=== PATIENT | male | born 1990 | race Hispanic/Latino ===

== ENCOUNTER 2021-04-03 09:27 | Emergency (ER) | payer BC ==
[~2021-04-03] VITALS: Ht 185.4 cm; Wt 190.5 kg
[2021-04-03] MEDS ORDERED: SODIUM CHLORIDE 0.9% 1000ML 1,000 ML IV STA (10:18)
[2021-04-03] MEDS ORDERED: AMPICILLIN SOD/SULBACTAM 3 GM VIAL ONE (10:50)
[2021-04-03] MEDS ORDERED: SODIUM CHLORIDE 0.9% 1000ML 1,000 ML ONE (10:50)
[2021-04-03] MEDS ORDERED: ACETAMINOPHEN 325 MG TAB ONE (10:50)
[2021-04-03] MEDS ORDERED: AMPICILLIN SOD/SULBACTAM 3GM 100 ML IV ONE (11:00)
[2021-04-03] MEDS ORDERED: ACETAMINOPHEN 325 MG TAB PO ONE (11:00)
[2021-04-03] MEDS ORDERED: SODIUM CHLORIDE 0.9% 50ML 50 ML ONE (11:15)
[2021-04-03] MEDS ORDERED: IOPAMIDOL 370 MG/ML 200 ML INFUS..BTL INJ ONE (11:15)
[2021-04-03] MEDS ORDERED: CLEOCIN HCL300 MG PO (14:05)
[2021-04-03] MEDS ORDERED: CEPHALEXIN500 MG PO (14:05)
[2021-04-03] MEDS ORDERED: ONDANSETRON ODT4 MG PO (14:07)
[2021-04-03] MEDS ORDERED: ATIVAN1 MG PO (14:08)
== END 2021-04-03 14:44 | disposition home or self-care (01) ==
LOC: FSED 09:33
DX: R50.9 Fever, unspecified (principal); K61.1 Rectal abscess; I10 Essential (primary) hypertension; R16.1 Splenomegaly, not elsewhere classified; K76.0 Fatty (change of) liver, not elsewhere classified; F10.20 Alcohol dependence, uncomplicated; E66.01 Morbid (severe) obesity due to excess calories; Z91.14 Patient's other noncompliance with medication regimen; Z20.822 Contact with and (suspected) exposure to COVID-19
CPT/HCPCS: 71260; 74177; 80048; 80076; 81003; 83518; 85025; 85379; 87400; 99284; J0295 ×2; J7030; Q9967; U0002

== ENCOUNTER 2021-08-09 10:09 | Emergency (ER) | payer BC ==
[~2021-08-09] VITALS: Ht 182.9 cm; Wt 188.0 kg
[~2021-08-09 10:09] MED LIST: ATIVAN1 MG PO; CEPHALEXIN500 MG PO; CLEOCIN HCL300 MG PO; ONDANSETRON ODT4 MG PO
[2021-08-09] MEDS ORDERED: SITZ BATH (11:03)
[2021-08-09] MEDS ORDERED: HEMORRHOID 1%-156 GM PR ×2 (11:03→11:19)
[2021-08-09] MEDS ORDERED: LMX 45 G1 TOP ×2 (11:03→11:19)
== END 2021-08-09 11:21 | disposition home or self-care (01) ==
LOC: FSED 10:20
DX: K62.5 Hemorrhage of anus and rectum (principal); K64.4 Residual hemorrhoidal skin tags; I10 Essential (primary) hypertension; E66.01 Morbid (severe) obesity due to excess calories
CPT/HCPCS: 99282

== ENCOUNTER 2021-09-19 16:10 | Inpatient (IN) | payer BC ==
[~2021-09-19] VITALS: Ht 182.9 cm; Wt 186.9 kg
[~2021-09-19 16:10] MED LIST changes: +HEMORRHOID 1%-156 GM PR; +LMX 45 G1 TOP; +SITZ BATH
[2021-09-19] MEDS ORDERED: ACETAMINOPHEN 325 MG TAB PO STA (16:50)
[2021-09-19] MEDS ORDERED: SODIUM CHLORIDE 0.9% 1000ML 1,000 ML IV STA (16:50)
[2021-09-19] MEDS ORDERED: Vancomycin IV 1.25 GM in SODIUM CHLORIDE 0.9% 250ML 250 ML IV ONE (17:00)
[2021-09-19] MEDS ORDERED: ACETAMINOPHEN 325 MG TAB ONE (17:08)
[2021-09-19] MEDS ORDERED: Vancomycin IV 1 GM VIAL ONE (17:09)
[2021-09-19] MEDS ORDERED: SODIUM CHLORIDE 0.9% 250ML 0 ML ONE (17:09)
[2021-09-19] MEDS ORDERED: PIPERACILLIN/TAZOBACTAM 3.375 GM VIAL ONE (17:09)
[2021-09-19] MEDS ORDERED: SODIUM CHLORIDE 0.9% 1000ML 1,000 ML ONE (17:09)
[2021-09-19] MEDS ORDERED: IOPAMIDOL 370 MG/ML 100 ML INFUS..BTL INJ ONE (19:40)
[2021-09-19 20:11] VITALS: BP 150/83
[2021-09-19] MEDS ORDERED: HYDROCODONE/APAP 5MG-325MG TAB PO PRN ×2 (20:15→23:45)
[2021-09-19 20:18] VITALS: BP 150/83
[2021-09-19 20:47] VITALS: BP 150/83
[2021-09-19] MEDS ORDERED: SODIUM CHLORIDE 0.9% 250ML 250 ML ONE (23:03)
[2021-09-19] MEDS ORDERED: SIMETHICONE 80 MG CHEW PO PRN (23:45)
[2021-09-19] MEDS ORDERED: ACETAMINOPHEN 325 MG TAB PO PRN (23:45)
[2021-09-19] MEDS ORDERED: DEXTROSE 50% SYRINGE 50 ML IV PRN (23:45)
[2021-09-19] MEDS ORDERED: POTASSIUM CHLORIDE 20 MEQ TAB CR PO PRN (23:45)
[2021-09-19] MEDS ORDERED: HYDRALAZINE HCL 20 MG/ML VIAL IV PRN (23:45)
[2021-09-19] MEDS ORDERED: ONDANSETRON HCL INJ 2MG/ML 2ML 2 MG/ML VIAL IV PRN (23:45)
[2021-09-19] MEDS ORDERED: MELATONIN 5 MG TABLET PO PRN (23:45)
[2021-09-19] MEDS ORDERED: DIPHENHYDRAMINE HCL 25 MG CAP PO PRN (23:45)
[2021-09-19] MEDS ORDERED: DOCUSATE SODIUM 100 MG CAP PO PRN (23:45)
[2021-09-19] MEDS ORDERED: BENZONATATE 100 MG CAP PO PRN (23:45)
[2021-09-19] MEDS ORDERED: LIDOCAINE 4% PATCH TP PRN (23:45)
[2021-09-19] MEDS ORDERED: ALBUTEROL/IPRATROPIUM 3 ML NEB NEB PRN (23:45)
[2021-09-20] VITALS (8 sets, daily range): BP systolic 148–183; BP diastolic 73–98
[2021-09-20 06:08] LABS: BASOPHILS # (AUTO) 0.1 (0.0-0.1); BASOPHILS % 0.7 % (0.0-1.0); EOSINOPHILS # (AUTO) 0.2 (0.0-0.4); HEMATOCRIT 42.2 % (38.2-49.6); HEMOGLOBIN 13.8 g/dL (14.0-18.0); LYMPHOCYTES # (AUTO) 1.3 (1.0-3.2); LYMPHOCYTES % 16.8 % (18.0-39.1); MEAN CORPUSCULAR HEMOGLOBIN 33.3 pg (28-32); MEAN CORPUSCULAR HGB CONC 32.7 g/dL (31-35); MEAN CORPUSCULAR VOLUME 101.9 fL (81-99); MONOCYTES # (AUTO) 0.7 (0.2-0.8); MONOCYTES % 9.3 % (4.4-11.3); NEUTROPHILS # (AUTO) 5.4 (2.1-6.9); NEUTROPHILS % 69.8 % (38.7-80.0); PLATELET COUNT 241 x10e3/uL (140-360); RED BLOOD COUNT 4.14 x10e6/uL (4.3-5.7); RED CELL DISTRIBUTION WIDTH 11.9 % (11.7-14.4)
[2021-09-20 06:51] LABS: ANION GAP 11.9 mmol/L (8-16); CHOL/HDL RATIO 3.4 (3.9-4.7); CREATININE, SERUM 0.7 mg/dL (0.72-1.25); MAGNESIUM 2.3 MG/DL (1.3-2.1); POTASSIUM 3.9 mmol/L (3.5-5.1)
[2021-09-20 07:07] LABS: THYROID STIMULATING HORMONE 3.344 uIU/mL (0.350-4.940)
[2021-09-20] MEDS ORDERED: Vancomycin IV 1.25 GM in SODIUM CHLORIDE 0.9% 250ML 250 ML IV SCH (08:30)
[2021-09-20] MEDS: PANTOPRAZOLE SOD 40 MG TABEC PO SCH (08:40)
[2021-09-20] MEDS: Vancomycin IV 1.25 GM in SODIUM CHLORIDE 0.9% 250ML 250 ML IV SCH ×2 (09:00→20:36)
[2021-09-20] MEDS ORDERED: BUPIVACAINE HCL 0.5% INJ 30 ML VIAL INJ ONE (09:03)
[2021-09-20] MEDS ORDERED: ONDANSETRON HCL INJ 2MG/ML 2ML 2 MG/ML VIAL ONE (12:09)
[2021-09-20] MEDS ORDERED: KETOROLAC TROMETHAMINE 30 MG/ML VIAL ONE (12:09)
[2021-09-20] MEDS ORDERED: PROPOFOL IV EMULSION 10 MG/ML 20 ML VIAL ONE (12:09)
[2021-09-20] MEDS ORDERED: POVIDONE IODINE 0.05% 0.05 % ML PO ONE (12:09)
[2021-09-20] MEDS ORDERED: LIDOCAINE HCL 2% LOCAL INJ 5 ML SDV VIAL INJ ONE (12:09)
[2021-09-20] MEDS ORDERED: SEVOFLURANE INHAL SOLN 250 ML PEN BTL ONE (12:09)
[2021-09-20] MEDS ORDERED: MIDAZOLAM HCL 2 MG/2 ML VIAL ONE (13:08)
[2021-09-20] MEDS ORDERED: FENTANYL CITRATE/PF 100MCG/2 ML INJ ONE (13:08)
[2021-09-20] MEDS: LOSARTAN POTASSIUM 25 MG TAB PO SCH (16:52)
[2021-09-20] MEDS: ENOXAPARIN SOD INJ 40 MG/0.4 ML SYR SC SCH (16:52)
[2021-09-21] VITALS: BP 136/90
[2021-09-21 04:47] VITALS: BP 159/106
[2021-09-21 06:13] LABS: BASOPHILS # (AUTO) 0.1 (0.0-0.1); BASOPHILS % 0.8 % (0.0-1.0); EOSINOPHILS # (AUTO) 0.3 (0.0-0.4); EOSINOPHILS % 5.2 % (0.0-6.0); HEMATOCRIT 42.3 % (38.2-49.6); HEMOGLOBIN 13.8 g/dL (14.0-18.0); LYMPHOCYTES # (AUTO) 1.2 (1.0-3.2); MEAN CORPUSCULAR HEMOGLOBIN 33.5 pg (28-32); MEAN CORPUSCULAR HGB CONC 32.6 g/dL (31-35); MEAN CORPUSCULAR VOLUME 102.7 fL (81-99); MONOCYTES # (AUTO) 0.5 (0.2-0.8); MONOCYTES % 8.1 % (4.4-11.3); NEUTROPHILS # (AUTO) 4.4 (2.1-6.9); NEUTROPHILS % 67.1 % (38.7-80.0); PLATELET COUNT 212 x10e3/uL (140-360); RED BLOOD COUNT 4.12 x10e6/uL (4.3-5.7); RED CELL DISTRIBUTION WIDTH 11.9 % (11.7-14.4)
[2021-09-21 06:30] LABS: ANION GAP 11.8 mmol/L (8-16); CALCIUM 8.1 mg/dL (8.4-10.2); CREATININE, SERUM 0.73 mg/dL (0.72-1.25); POTASSIUM 3.8 mmol/L (3.5-5.1)
[2021-09-21 08:02] VITALS: BP 115/58
[2021-09-21] MEDS: Vancomycin IV 1.25 GM in SODIUM CHLORIDE 0.9% 250ML 250 ML IV SCH ×2 (08:28→20:50)
[2021-09-21] MEDS: PANTOPRAZOLE SOD 40 MG TABEC PO SCH (08:28)
[2021-09-21] MEDS: LOSARTAN POTASSIUM 25 MG TAB PO SCH (08:29)
[2021-09-21 11:27] VITALS: BP 141/91
[2021-09-21] MEDS ORDERED: ONDANSETRON HCL 4 MG ORAL DISINTEGRATING TAB PO PRN ×2 (13:00)
[2021-09-21 15:31] VITALS: BP 145/93
[2021-09-21] MEDS: ENOXAPARIN SOD INJ 40 MG/0.4 ML SYR SC SCH (17:14)
[2021-09-21 20:00] VITALS: BP 119/63
[2021-09-21] MEDS ORDERED: METOPROLOL TARTRATE 25 MG TAB PO SCH (21:00)
[2021-09-21] MEDS ORDERED: ATORVASTATIN 40 MG TAB PO SCH (21:00)
[2021-09-22] VITALS (8 sets, daily range): BP systolic 122–139; BP diastolic 68–85
[2021-09-22 06:57] LABS: BASOPHILS # (AUTO) 0.1 (0.0-0.1); BASOPHILS % 0.9 % (0.0-1.0); EOSINOPHILS # (AUTO) 0.4 (0.0-0.4); EOSINOPHILS % 5.6 % (0.0-6.0); HEMATOCRIT 42.3 % (38.2-49.6); HEMOGLOBIN 14.4 g/dL (14.0-18.0); LYMPHOCYTES # (AUTO) 1.6 (1.0-3.2); MEAN CORPUSCULAR HEMOGLOBIN 35.3 pg (28-32); MEAN CORPUSCULAR VOLUME 103.7 fL (81-99); MONOCYTES # (AUTO) 0.5 (0.2-0.8); MONOCYTES % 6.6 % (4.4-11.3); NEUTROPHILS # (AUTO) 4.3 (2.1-6.9); NEUTROPHILS % 63.3 % (38.7-80.0); PLATELET COUNT 221 x10e3/uL (140-360); RED BLOOD COUNT 4.08 x10e6/uL (4.3-5.7)
[2021-09-22 07:31] LABS: CALCIUM 8.4 mg/dL (8.4-10.2); CREATININE, SERUM 0.74 mg/dL (0.72-1.25)
[2021-09-22] MEDS: LOSARTAN POTASSIUM 25 MG TAB PO SCH (08:46)
[2021-09-22] MEDS: PANTOPRAZOLE SOD 40 MG TABEC PO SCH (08:46)
[2021-09-22] MEDS: Vancomycin IV 1.25 GM in SODIUM CHLORIDE 0.9% 250ML 250 ML IV SCH ×2 (09:29→20:45)
[2021-09-22] MEDS: ENOXAPARIN SOD INJ 40 MG/0.4 ML SYR SC SCH (16:31)
[2021-09-23] VITALS (10 sets, daily range): BP systolic 126–139; BP diastolic 79–95
[2021-09-23] MEDS: PANTOPRAZOLE SOD 40 MG TABEC PO SCH (08:30)
[2021-09-23] MEDS: LOSARTAN POTASSIUM 25 MG TAB PO SCH (08:30)
[2021-09-23] MEDS: Vancomycin IV 1.25 GM in SODIUM CHLORIDE 0.9% 250ML 250 ML IV SCH (08:41)
[2021-09-23] MEDS: ENOXAPARIN SOD INJ 40 MG/0.4 ML SYR SC SCH (17:04)
[2021-09-24] VITALS: BP 115/85
[2021-09-24 04:00] VITALS: BP 136/98
[2021-09-24 07:43] VITALS: BP 154/82
[2021-09-24] MEDS ORDERED: SODIUM CHLORIDE 0.9% 250ML 250 ML ONE (07:43)
[2021-09-24 08:03] VITALS: BP 154/82
[2021-09-24] MEDS ORDERED: CEFTRIAXONE 2 GM in SODIUM CHLORIDE 0.9% 100 ML IV SCH (09:00)
[2021-09-24] MEDS: LOSARTAN POTASSIUM 25 MG TAB PO SCH (09:01)
[2021-09-24] MEDS: PANTOPRAZOLE SOD 40 MG TABEC PO SCH (09:01)
[2021-09-24 11:43] VITALS: BP 140/85
[2021-09-24 15:40] VITALS: BP 136/81
[2021-09-24] MEDS: ENOXAPARIN SOD INJ 40 MG/0.4 ML SYR SC SCH (16:19)
[2021-09-24] MEDS ORDERED: LOSARTAN POTASS25 MG PO (18:10)
== END 2021-09-24 19:12 | disposition home or self-care (01) | DRG 603 ==
LOC: FSED 16:15 → ERHOLD 16:55 → MED/SURG3 19:42
PROVIDERS: ADMIT Internal Medicine; ATTEND Internal Medicine
PROC: 0W9M0ZZ Drainage of Male Perineum, Open Approach (ICD-10-PCS; principal; 2021-09-20 09:05)
PROC: 02HV33Z Insertion of Infusion Device into Superior Vena Cava, Percutaneous Approach (ICD-10-PCS; 2021-09-21)
DX: L02.215 Cutaneous abscess of perineum (principal); Z68.43 Body mass index [BMI] 50.0-59.9, adult; E66.01 Morbid (severe) obesity due to excess calories; K76.0 Fatty (change of) liver, not elsewhere classified; I10 Essential (primary) hypertension; Z72.0 Tobacco use; F12.90 Cannabis use, unspecified, uncomplicated; B96.20 Unspecified Escherichia coli [E. coli] as the cause of diseases classified elsewhere; F10.10 Alcohol abuse, uncomplicated; Z20.822 Contact with and (suspected) exposure to COVID-19
CPT/HCPCS: 36415; 36569; 71045; 72193; 80048; 80053; 80061; 80202; 83036; 83605; 83735; 84443; 85025; 87040; 87071; 87186; 87205; 94799; 99284; J0696; J1650; J1885; J2001; J2250; J2405; J2543; J3010; J3370; J7030; J7050; Q9967; U0002

== ENCOUNTER 2021-10-07 11:49 | Inpatient (IN) | payer BC ==
[~2021-10-07] VITALS: Ht 182.9 cm; Wt 186.0 kg
[~2021-10-07 11:49] MED LIST changes: +LOSARTAN POTASS25 MG PO
[2021-10-07 12:37] LABS: BASOPHILS # (AUTO) 0.1 (0.0-0.1); BASOPHILS % 1.2 % (0.0-1.0); EOSINOPHILS # (AUTO) 0.4 (0.0-0.4); EOSINOPHILS % 6.3 % (0.0-6.0); HEMATOCRIT 44.9 % (38.2-49.6); HEMOGLOBIN 14.5 g/dL (14.0-18.0); LYMPHOCYTES # (AUTO) 1.5 (1.0-3.2); LYMPHOCYTES % 25.5 % (18.0-39.1); MEAN CORPUSCULAR HEMOGLOBIN 33.2 pg (28-32); MEAN CORPUSCULAR HGB CONC 32.3 g/dL (31-35); MEAN CORPUSCULAR VOLUME 102.7 fL (81-99); MONOCYTES # (AUTO) 0.4 (0.2-0.8); MONOCYTES % 6.3 % (4.4-11.3); NEUTROPHILS # (AUTO) 3.6 (2.1-6.9); NEUTROPHILS % 60.2 % (38.7-80.0); PLATELET COUNT 218 x10e3/uL (140-360); RED BLOOD COUNT 4.37 x10e6/uL (4.3-5.7); RED CELL DISTRIBUTION WIDTH 11.8 % (11.7-14.4)
[2021-10-07 12:50] LABS: INR 0.92; PROTHROMBIN TIME 13.2 seconds (11.9-14.5)
[2021-10-07 12:51] LABS: PARTIAL THROMBOPLASTIN TIME 30.7 seconds (23.8-35.5)
[2021-10-07 12:58] LABS: ALBUMIN 3.3 g/dL (3.5-5.0); ALBUMIN/GLOBULIN RATIO 0.7 (0.8-2.0); ANION GAP 16.3 mmol/L (8-16); CALCIUM 8.2 mg/dL (8.4-10.2); CREATININE, SERUM 0.73 mg/dL (0.72-1.25); POTASSIUM 4.3 mmol/L (3.5-5.1)
[2021-10-07] MEDS ORDERED: IOPAMIDOL 370 MG/ML 100 ML INFUS..BTL INJ ONE (14:25)
[2021-10-07] MEDS ORDERED: ENOXAPARIN SODIUM INJ 100 MG/ML SYR SC SCH (14:45)
[2021-10-07] MEDS ORDERED: SODIUM CHLORIDE 0.9% 1000ML 1,000 ML IV SCH (16:45)
[2021-10-07] MEDS ORDERED: ONDANSETRON HCL INJ 2MG/ML 2ML 2 MG/ML VIAL IV PRN ×2 (16:45→20:45)
[2021-10-07] MEDS ORDERED: Morphine 4mg Syringe 4 MG/ML INJ IV PRN (16:45)
[2021-10-07 17:30] VITALS: BP 159/105
[2021-10-07 19:07] LABS: CREATINE KINASE 330 IU/L (30-200)
[2021-10-07 20:00] VITALS: BP 154/102
[2021-10-07] MEDS ORDERED: ENOXAPARIN SOD INJ 40 MG/0.4 ML SYR SC STA (20:35)
[2021-10-07] MEDS ORDERED: POTASSIUM CHLORIDE 20 MEQ TAB CR PO PRN (20:45)
[2021-10-07] MEDS ORDERED: ALBUTEROL/IPRATROPIUM 3 ML NEB NEB PRN (20:45)
[2021-10-07] MEDS ORDERED: SIMETHICONE 80 MG CHEW PO PRN (20:45)
[2021-10-07] MEDS ORDERED: DEXTROSE 50% SYRINGE 50 ML IV PRN (20:45)
[2021-10-07] MEDS ORDERED: HYDRALAZINE HCL 20 MG/ML VIAL IV PRN (20:45)
[2021-10-07] MEDS ORDERED: ACETAMINOPHEN 325 MG TAB PO PRN (20:45)
[2021-10-07] MEDS ORDERED: BENZONATATE 100 MG CAP PO PRN (20:45)
[2021-10-07] MEDS ORDERED: DIPHENHYDRAMINE HCL 25 MG CAP PO PRN (20:45)
[2021-10-07] MEDS ORDERED: DOCUSATE SODIUM 100 MG CAP PO PRN (20:45)
[2021-10-07] MEDS ORDERED: LIDOCAINE 4% PATCH TP PRN (20:45)
[2021-10-07] MEDS ORDERED: HEPARIN SOD (PORCINE) 5,000 UNIT/ML VIAL IV ONE (21:15)
[2021-10-07] MEDS: HEPARIN 25,000 UNIT 25,000 UNIT in DEXTROSE 5% 250ML 250 ML IV SCH (21:50)
[2021-10-07] MEDS ORDERED: HEPARIN 25,000 UNIT DRIP IV ONE (21:52)
[2021-10-07 23:18] VITALS: BP 131/80
[2021-10-08] VITALS (8 sets, daily range): BP systolic 127–145; BP diastolic 70–98
[2021-10-08 05:20] LABS: CREATINE KINASE 232 IU/L (30-200)
[2021-10-08 05:51] LABS: ALBUMIN 3.2 g/dL (3.5-5.0); ALBUMIN/GLOBULIN RATIO 0.9 (0.8-2.0); ANION GAP 12.8 mmol/L (8-16); CALCIUM 8.4 mg/dL (8.4-10.2); CREATININE, SERUM 0.69 mg/dL (0.72-1.25); POTASSIUM 3.8 mmol/L (3.5-5.1)
[2021-10-08 06:08] LABS: BASOPHILS # (AUTO) 0.1 (0.0-0.1); BASOPHILS % 0.9 % (0.0-1.0); EOSINOPHILS # (AUTO) 0.4 (0.0-0.4); EOSINOPHILS % 7.2 % (0.0-6.0); HEMATOCRIT 44.4 % (38.2-49.6); HEMOGLOBIN 13.9 g/dL (14.0-18.0); LYMPHOCYTES # (AUTO) 1.3 (1.0-3.2); LYMPHOCYTES % 22.5 % (18.0-39.1); MEAN CORPUSCULAR HEMOGLOBIN 33.1 pg (28-32); MEAN CORPUSCULAR HGB CONC 31.3 g/dL (31-35); MEAN CORPUSCULAR VOLUME 105.7 fL (81-99); MONOCYTES # (AUTO) 0.5 (0.2-0.8); MONOCYTES % 8.1 % (4.4-11.3); NEUTROPHILS # (AUTO) 3.4 (2.1-6.9); NEUTROPHILS % 60.6 % (38.7-80.0); PLATELET COUNT 181 x10e3/uL (140-360); RED CELL DISTRIBUTION WIDTH 11.8 % (11.7-14.4)
[2021-10-08] MEDS: PANTOPRAZOLE SOD 40 MG TABEC PO SCH (08:42)
[2021-10-08] MEDS: LOSARTAN POTASSIUM 25 MG TAB PO SCH (08:42)
[2021-10-08 12:13] LABS: CREATINE KINASE 212 IU/L (30-200)
[2021-10-08] MEDS ORDERED: CEFEPIME 2 GM in SODIUM CHLORIDE 0.9% 100 ML IV ONE (14:00)
[2021-10-08] MEDS: HEPARIN 25,000 UNIT 25,000 UNIT in DEXTROSE 5% 250ML 250 ML IV SCH (14:01)
[2021-10-08] MEDS ORDERED: SODIUM CHLORIDE 0.9% 250ML 250 ML ONE (15:25)
[2021-10-08] MEDS: HYDROCODONE/APAP 5MG-325MG TAB PO PRN (17:50)
[2021-10-09] VITALS (9 sets, daily range): BP systolic 121–160; BP diastolic 81–115
[2021-10-09] MEDS ORDERED: HEPARIN 25,000 UNIT DRIP IV ONE (02:47)
[2021-10-09] MEDS: MELATONIN 5 MG TABLET PO PRN (03:40)
[2021-10-09] MEDS: HYDROCODONE/APAP 5MG-325MG TAB PO PRN ×2 (04:06→11:01)
[2021-10-09] MEDS: PANTOPRAZOLE SOD 40 MG TABEC PO SCH (09:02)
[2021-10-09] MEDS: LOSARTAN POTASSIUM 25 MG TAB PO SCH (09:03)
[2021-10-09 10:56] LABS: BASOPHILS # (AUTO) 0.1 (0.0-0.1); BASOPHILS % 0.7 % (0.0-1.0); EOSINOPHILS # (AUTO) 0.5 (0.0-0.4); EOSINOPHILS % 6.9 % (0.0-6.0); HEMATOCRIT 42.6 % (38.2-49.6); HEMOGLOBIN 13.4 g/dL (14.0-18.0); LYMPHOCYTES # (AUTO) 1.3 (1.0-3.2); LYMPHOCYTES % 18.2 % (18.0-39.1); MEAN CORPUSCULAR HEMOGLOBIN 33.3 pg (28-32); MEAN CORPUSCULAR HGB CONC 31.5 g/dL (31-35); MONOCYTES # (AUTO) 0.5 (0.2-0.8); MONOCYTES % 7.7 % (4.4-11.3); NEUTROPHILS # (AUTO) 4.6 (2.1-6.9); NEUTROPHILS % 66.1 % (38.7-80.0); PLATELET COUNT 189 x10e3/uL (140-360); RED BLOOD COUNT 4.02 x10e6/uL (4.3-5.7); RED CELL DISTRIBUTION WIDTH 11.9 % (11.7-14.4)
[2021-10-09] MEDS: HYDROCODONE/APAP 7.5MG-325MG 1 EA TAB PO PRN ×2 (15:51→22:31)
[2021-10-09] MEDS: HEPARIN 25,000 UNIT 25,000 UNIT in DEXTROSE 5% 250ML 250 ML IV SCH (15:53)
[2021-10-09 16:50] LABS: INR 0.88; PROTHROMBIN TIME 12.8 seconds (11.9-14.5)
[2021-10-09] MEDS: WARFARIN SOD 5 MG TAB PO SCH (16:53)
[2021-10-09] MEDS ORDERED: LOSARTAN POTASSIUM 100 MG TAB PO ONE (18:35)
[2021-10-10] VITALS (8 sets, daily range): BP systolic 134–158; BP diastolic 85–99
[2021-10-10] MEDS: HEPARIN 25,000 UNIT 25,000 UNIT in DEXTROSE 5% 250ML 250 ML IV SCH (03:37)
[2021-10-10] MEDS: LOSARTAN POTASSIUM 100 MG TAB PO SCH (09:07)
[2021-10-10] MEDS: PANTOPRAZOLE SOD 40 MG TABEC PO SCH (09:07)
[2021-10-10 10:06] LABS: BASOPHILS # (AUTO) 0.1 (0.0-0.1); EOSINOPHILS # (AUTO) 0.5 (0.0-0.4); EOSINOPHILS % 8.7 % (0.0-6.0); HEMOGLOBIN 13.3 g/dL (14.0-18.0); LYMPHOCYTES # (AUTO) 1.3 (1.0-3.2); LYMPHOCYTES % 21.5 % (18.0-39.1); MEAN CORPUSCULAR HGB CONC 30.9 g/dL (31-35); MEAN CORPUSCULAR VOLUME 106.7 fL (81-99); MONOCYTES # (AUTO) 0.6 (0.2-0.8); MONOCYTES % 9.9 % (4.4-11.3); NEUTROPHILS # (AUTO) 3.6 (2.1-6.9); NEUTROPHILS % 58.4 % (38.7-80.0); PLATELET COUNT 181 x10e3/uL (140-360); RED BLOOD COUNT 4.03 x10e6/uL (4.3-5.7); RED CELL DISTRIBUTION WIDTH 11.9 % (11.7-14.4)
[2021-10-10] MEDS: HYDROCODONE/APAP 7.5MG-325MG 1 EA TAB PO PRN ×2 (10:07→17:55)
[2021-10-10] MEDS ORDERED: HEPARIN 25,000 UNIT DRIP IV ONE (16:28)
[2021-10-10] MEDS: WARFARIN SOD 5 MG TAB PO SCH (17:27)
[2021-10-10] MEDS: MELATONIN 5 MG TABLET PO PRN (22:05)
[2021-10-11] VITALS (7 sets, daily range): BP systolic 121–163; BP diastolic 72–97
[2021-10-11] MEDS: HYDROCODONE/APAP 7.5MG-325MG 1 EA TAB PO PRN ×4 (00:22→19:42)
[2021-10-11] MEDS: MELATONIN 5 MG TABLET PO PRN (00:22)
[2021-10-11] MEDS ORDERED: HEPARIN 25,000 UNIT 25,000 UNIT in DEXTROSE 5% 250ML 250 ML IV SCH ×2 (02:30→03:45)
[2021-10-11] MEDS ORDERED: HEPARIN 25,000 UNIT DRIP IV ONE ×2 (03:27→13:12)
[2021-10-11 06:17] LABS: BASOPHILS % 0.7 % (0.0-1.0); EOSINOPHILS # (AUTO) 0.5 (0.0-0.4); EOSINOPHILS % 8.9 % (0.0-6.0); HEMATOCRIT 41.4 % (38.2-49.6); HEMOGLOBIN 13.1 g/dL (14.0-18.0); LYMPHOCYTES # (AUTO) 1.2 (1.0-3.2); LYMPHOCYTES % 21.5 % (18.0-39.1); MEAN CORPUSCULAR HEMOGLOBIN 32.8 pg (28-32); MEAN CORPUSCULAR HGB CONC 31.6 g/dL (31-35); MEAN CORPUSCULAR VOLUME 103.8 fL (81-99); MONOCYTES # (AUTO) 0.6 (0.2-0.8); NEUTROPHILS # (AUTO) 3.2 (2.1-6.9); NEUTROPHILS % 57.4 % (38.7-80.0); PLATELET COUNT 166 x10e3/uL (140-360); RED BLOOD COUNT 3.99 x10e6/uL (4.3-5.7); RED CELL DISTRIBUTION WIDTH 11.8 % (11.7-14.4)
[2021-10-11 06:46] LABS: ANION GAP 9.8 mmol/L (8-16); CALCIUM 8.8 mg/dL (8.4-10.2); CREATININE, SERUM 0.67 mg/dL (0.72-1.25); POTASSIUM 3.8 mmol/L (3.5-5.1)
[2021-10-11 07:02] LABS: INR 0.96; PROTHROMBIN TIME 13.7 seconds (11.9-14.5)
[2021-10-11] MEDS: PANTOPRAZOLE SOD 40 MG TABEC PO SCH (09:49)
[2021-10-11] MEDS: LOSARTAN POTASSIUM 100 MG TAB PO SCH (09:49)
[2021-10-11] MEDS: HEPARIN 25,000U/0.45% NS 250ML 250 ML IV SCH ×2 (16:43→23:30)
[2021-10-11] MEDS: WARFARIN SOD 5 MG TAB PO SCH (16:45)
[2021-10-12] VITALS (7 sets, daily range): BP systolic 127–145; BP diastolic 70–100
[2021-10-12] MEDS: HYDROCODONE/APAP 7.5MG-325MG 1 EA TAB PO PRN ×3 (01:36→16:13)
[2021-10-12] MEDS: MELATONIN 5 MG TABLET PO PRN (01:36)
[2021-10-12 05:56] LABS: BASOPHILS # (AUTO) 0.1 (0.0-0.1); BASOPHILS % 0.9 % (0.0-1.0); EOSINOPHILS # (AUTO) 0.5 (0.0-0.4); EOSINOPHILS % 9.5 % (0.0-6.0); HEMATOCRIT 41.4 % (38.2-49.6); HEMOGLOBIN 13.3 g/dL (14.0-18.0); LYMPHOCYTES # (AUTO) 1.4 (1.0-3.2); LYMPHOCYTES % 24.6 % (18.0-39.1); MEAN CORPUSCULAR HGB CONC 32.1 g/dL (31-35); MEAN CORPUSCULAR VOLUME 102.7 fL (81-99); MONOCYTES # (AUTO) 0.6 (0.2-0.8); MONOCYTES % 11.4 % (4.4-11.3); NEUTROPHILS % 52.7 % (38.7-80.0); PLATELET COUNT 141 x10e3/uL (140-360); RED BLOOD COUNT 4.03 x10e6/uL (4.3-5.7); RED CELL DISTRIBUTION WIDTH 11.9 % (11.7-14.4)
[2021-10-12 06:06] LABS: INR 0.92; PROTHROMBIN TIME 13.2 seconds (11.9-14.5)
[2021-10-12] MEDS: PANTOPRAZOLE SOD 40 MG TABEC PO SCH (08:15)
[2021-10-12] MEDS: LOSARTAN POTASSIUM 100 MG TAB PO SCH (09:17)
[2021-10-12] MEDS: HYDROCODONE/APAP 10MG-325MG TAB PO PRN ×2 (11:30→23:30)
[2021-10-12 12:35] LABS: INR 0.92; PROTHROMBIN TIME 13.2 seconds (11.9-14.5)
[2021-10-12] MEDS: WARFARIN SOD 5 MG TAB PO SCH (17:07)
[2021-10-12] MEDS: HEPARIN 25,000U/0.45% NS 250ML 250 ML IV SCH (20:29)
[2021-10-13] VITALS (8 sets, daily range): BP systolic 125–155; BP diastolic 80–94
[2021-10-13] MEDS: HYDROCODONE/APAP 10MG-325MG TAB PO PRN ×2 (05:48→12:18)
[2021-10-13] MEDS: PANTOPRAZOLE SOD 40 MG TABEC PO SCH (08:27)
[2021-10-13] MEDS: LOSARTAN POTASSIUM 100 MG TAB PO SCH (09:16)
[2021-10-13 13:24] LABS: INR 0.97; PROTHROMBIN TIME 13.8 seconds (11.9-14.5)
[2021-10-13] MEDS: WARFARIN SOD 5 MG TAB PO SCH (16:43)
== END 2021-10-13 22:49 | disposition short-term general hospital (02) | DRG 315 ==
LOC: ER 11:55 → ERHOLD 16:40 → MED/SURG2 17:38
PROVIDERS: ADMIT Internal Medicine; ATTEND Internal Medicine
PROC: 05PY33Z Removal of Infusion Device from Upper Vein, Percutaneous Approach (ICD-10-PCS; principal; 2021-10-10)
DX: T82.868A Thrombosis due to vascular prosthetic devices, implants and grafts, initial encounter (principal); K61.1 Rectal abscess; Z68.43 Body mass index [BMI] 50.0-59.9, adult; E66.01 Morbid (severe) obesity due to excess calories; Y82.8 Other medical devices associated with adverse incidents; I10 Essential (primary) hypertension; Z82.49 Family history of ischemic heart disease and other diseases of the circulatory system; Z83.3 Family history of diabetes mellitus; F10.20 Alcohol dependence, uncomplicated; F12.90 Cannabis use, unspecified, uncomplicated; Z72.0 Tobacco use; D64.9 Anemia, unspecified
CPT/HCPCS: 36415; 71260; 74470; 80048; 80053; 82550; 82553; 83605; 84484; 85025; 85610; 85730; 87040; 93306; 93971; 94799; 99251; 99284; J0360; J0692; J1644; J1650; J2270; J2405; J7030; J7050; Q9967; U0002

== ENCOUNTER 2022-03-11 16:30 | Inpatient (IN) | payer BC ==
[~2022-03-11] VITALS: Ht 182.9 cm; Wt 185.7 kg
[2022-03-11] MEDS ORDERED: IOPAMIDOL 370 MG/ML 100 ML INFUS..BTL INJ ONE (20:17)
[2022-03-11] MEDS ORDERED: CEFEPIME 2 GM in SODIUM CHLORIDE 0.9% 100 ML IV ONE (20:30)
[2022-03-11] MEDS ORDERED: CEFEPIME HCL 1 GM VIAL ONE ×2 (21:12→21:14)
[2022-03-11] MEDS ORDERED: SODIUM CHLORIDE 0.9% 100 ML ONE (21:14)
[2022-03-11] MEDS ORDERED: KETOROLAC TROMETHAMINE 30 MG/ML VIAL IV STA (21:19)
[2022-03-11] MEDS ORDERED: SODIUM CHLORIDE 0.9% 1000ML 1,000 ML IV SCH (21:30)
[2022-03-11] MEDS ORDERED: KETOROLAC TROMETHAMINE 30 MG/ML VIAL ONE (21:52)
[2022-03-11] MEDS ORDERED: SODIUM CHLORIDE 0.9% 1000ML 1,000 ML ONE (21:53)
[2022-03-11] MEDS ORDERED: ACETAMINOPHEN 325 MG TAB PO ONE (22:00)
[2022-03-11] MEDS ORDERED: ACETAMINOPHEN 325 MG TAB ONE (22:02)
[2022-03-12] VITALS (9 sets, daily range): BP systolic 128–157; BP diastolic 82–93
[2022-03-12] MEDS: CEFEPIME 2 GM in SODIUM CHLORIDE 0.9% 100 ML IV SCH ×3 (06:13→23:00)
[2022-03-12] MEDS: METRONIDAZOLE 500MG/NS 100ML 100 ML IV SCH ×3 (06:13→23:00)
[2022-03-12 06:58] LABS: BASOPHILS # (AUTO) 0.1 (0.0-0.1); BASOPHILS % 0.6 % (0.0-1.0); EOSINOPHILS # (AUTO) 0.2 (0.0-0.4); EOSINOPHILS % 1.7 % (0.0-6.0); HEMATOCRIT 39.9 % (38.2-49.6); HEMOGLOBIN 13.1 g/dL (14.0-18.0); LYMPHOCYTES # (AUTO) 1.1 (1.0-3.2); LYMPHOCYTES % 11.6 % (18.0-39.1); MEAN CORPUSCULAR HEMOGLOBIN 31.3 pg (28-32); MEAN CORPUSCULAR HGB CONC 32.8 g/dL (31-35); MEAN CORPUSCULAR VOLUME 95.2 fL (81-99); MONOCYTES # (AUTO) 0.9 (0.2-0.8); MONOCYTES % 9.5 % (4.4-11.3); NEUTROPHILS # (AUTO) 7.3 (2.1-6.9); PLATELET COUNT 226 x10e3/uL (140-360); RED BLOOD COUNT 4.19 x10e6/uL (4.3-5.7); RED CELL DISTRIBUTION WIDTH 14.5 % (11.7-14.4)
[2022-03-12] MEDS: SODIUM CHLORIDE 0.9% 1000ML 1,000 ML IV SCH ×3 (07:15→15:15)
[2022-03-12 07:21] LABS: ALBUMIN 2.8 g/dL (3.5-5.0); ALBUMIN/GLOBULIN RATIO 0.6 (0.8-2.0); ANION GAP 14.1 mmol/L (8-16); CALCIUM 8.6 mg/dL (8.4-10.2); CREATININE, SERUM 0.7 mg/dL (0.72-1.25); POTASSIUM 4.1 mmol/L (3.5-5.1)
[2022-03-12] MEDS ORDERED: Morphine 2mg Syringe 2 MG/ML SYR ONE (08:03)
[2022-03-12] MEDS: Morphine 4mg INJECTION 4 MG/ML INJ IV PRN ×3 (08:22→19:51)
[2022-03-12] MEDS ORDERED: ALBUTEROL/IPRATROPIUM 3 ML NEB NEB PRN (11:30)
[2022-03-12] MEDS ORDERED: LIDOCAINE 4% PATCH TP PRN (11:30)
[2022-03-12] MEDS ORDERED: DOCUSATE SODIUM 100 MG CAP PO PRN (11:30)
[2022-03-12] MEDS ORDERED: POTASSIUM CHLORIDE 20 MEQ TAB CR PO PRN (11:30)
[2022-03-12] MEDS ORDERED: BENZONATATE 100 MG CAP PO PRN (11:30)
[2022-03-12] MEDS ORDERED: DIPHENHYDRAMINE HCL 25 MG CAP PO PRN (11:30)
[2022-03-12] MEDS ORDERED: MELATONIN 5 MG TABLET PO PRN (11:30)
[2022-03-12] MEDS ORDERED: SIMETHICONE 80 MG CHEW PO PRN (11:30)
[2022-03-12] MEDS ORDERED: DEXTROSE 50% SYRINGE 50 ML IV PRN (11:30)
[2022-03-12] MEDS ORDERED: ACETAMINOPHEN 325 MG TAB PO PRN (11:30)
[2022-03-12] MEDS ORDERED: HYDRALAZINE HCL 20 MG/ML VIAL IV PRN (11:30)
[2022-03-12] MEDS: Vancomycin IV 1.25 GM in SODIUM CHLORIDE 0.9% 250ML 250 ML IV SCH ×2 (12:21→21:13)
[2022-03-12] MEDS: ONDANSETRON HCL INJ 2MG/ML 2ML 2 MG/ML VIAL IV PRN (15:11)
[2022-03-12] MEDS ORDERED: ENOXAPARIN SOD INJ 40 MG/0.4 ML SYR SC SCH (17:00)
[2022-03-13] VITALS (9 sets, daily range): BP systolic 123–149; BP diastolic 84–110
[2022-03-13] MEDS: Morphine 4mg INJECTION 4 MG/ML INJ IV PRN ×2 (00:34→05:33)
[2022-03-13] MEDS: SODIUM CHLORIDE 0.9% 1000ML 1,000 ML IV SCH ×3 (05:10→15:06)
[2022-03-13] MEDS: CEFEPIME 2 GM in SODIUM CHLORIDE 0.9% 100 ML IV SCH (05:25)
[2022-03-13] MEDS: METRONIDAZOLE 500MG/NS 100ML 100 ML IV SCH ×3 (05:25→23:45)
[2022-03-13 05:59] LABS: BASOPHILS # (AUTO) 0.1 (0.0-0.1); BASOPHILS % 0.6 % (0.0-1.0); EOSINOPHILS # (AUTO) 0.3 (0.0-0.4); EOSINOPHILS % 2.9 % (0.0-6.0); HEMATOCRIT 40.2 % (38.2-49.6); HEMOGLOBIN 12.6 g/dL (14.0-18.0); LYMPHOCYTES % 10.9 % (18.0-39.1); MEAN CORPUSCULAR HEMOGLOBIN 31.1 pg (28-32); MEAN CORPUSCULAR HGB CONC 31.3 g/dL (31-35); MEAN CORPUSCULAR VOLUME 99.3 fL (81-99); MONOCYTES # (AUTO) 0.8 (0.2-0.8); MONOCYTES % 8.6 % (4.4-11.3); NEUTROPHILS # (AUTO) 6.8 (2.1-6.9); NEUTROPHILS % 76.4 % (38.7-80.0); PLATELET COUNT 234 x10e3/uL (140-360); RED BLOOD COUNT 4.05 x10e6/uL (4.3-5.7); RED CELL DISTRIBUTION WIDTH 13.8 % (11.7-14.4)
[2022-03-13 06:33] LABS: ANION GAP 14.9 mmol/L (8-16); CALCIUM 8.6 mg/dL (8.4-10.2); CREATININE, SERUM 0.68 mg/dL (0.72-1.25); MAGNESIUM 1.9 MG/DL (1.3-2.1); POTASSIUM 3.9 mmol/L (3.5-5.1)
[2022-03-13 06:41] LABS: THYROID STIMULATING HORMONE 1.772 uIU/mL (0.350-4.940)
[2022-03-13] MEDS ORDERED: PANTOPRAZOLE SOD 40 MG TABEC PO SCH (07:30)
[2022-03-13] MEDS: Vancomycin IV 1.25 GM in SODIUM CHLORIDE 0.9% 250ML 250 ML IV SCH ×2 (11:16→22:36)
[2022-03-13] MEDS ORDERED: ACETAMINOPHEN 1000 MG/100 ML 100 ML IV ONE (13:05)
[2022-03-13] MEDS ORDERED: LIDOCAINE JELLY 2% 10ML URO-JET ONE (13:25)
[2022-03-13] MEDS ORDERED: BUPIVACAINE 0.5%/EPI 30 ML SDV INJ ONE (13:25)
[2022-03-13] MEDS ORDERED: LIDOCAINE HCL 1% LOCAL INJ 20 ML VIAL ONE (13:25)
[2022-03-13] MEDS: HYDROMORPHONE 1MG/1ML INJ IV PRN ×3 (15:26→23:51)
[2022-03-13] MEDS ORDERED: MIDAZOLAM HCL 2 MG/2 ML VIAL ONE (17:35)
[2022-03-13] MEDS ORDERED: FENTANYL CITRATE/PF 100MCG/2 ML INJ ONE ×2 (17:35→17:44)
[2022-03-14] VITALS (8 sets, daily range): BP systolic 128–155; BP diastolic 73–98
[2022-03-14] MEDS: SODIUM CHLORIDE 0.9% 1000ML 1,000 ML IV SCH ×2 (01:16→08:11)
[2022-03-14] MEDS: HYDROMORPHONE 1MG/1ML INJ IV PRN ×2 (04:28→21:56)
[2022-03-14] MEDS: METRONIDAZOLE 500MG/NS 100ML 100 ML IV SCH ×4 (04:28→23:00)
[2022-03-14] MEDS: Vancomycin IV 1.25 GM in SODIUM CHLORIDE 0.9% 250ML 250 ML IV SCH (08:10)
[2022-03-14] MEDS: HYDROCODONE/APAP 7.5MG-325MG 1 EA TAB PO PRN (10:25)
[2022-03-14] MEDS: Vancomycin IV 1.5 GM in SODIUM CHLORIDE 0.9% 250ML 300 ML IV SCH (21:34)
[2022-03-14] MEDS: ONDANSETRON HCL INJ 2MG/ML 2ML 2 MG/ML VIAL IV PRN (21:56)
[2022-03-15] VITALS (8 sets, daily range): BP systolic 133–154; BP diastolic 88–94
[2022-03-15] MEDS ORDERED: SODIUM CHLORIDE 0.9% 250ML 250 ML ONE (05:20)
[2022-03-15] MEDS: METRONIDAZOLE 500MG/NS 100ML 100 ML IV SCH ×2 (05:38→09:28)
[2022-03-15] MEDS: HYDROMORPHONE 1MG/1ML INJ IV PRN ×5 (06:32→21:53)
[2022-03-15] MEDS: ONDANSETRON HCL INJ 2MG/ML 2ML 2 MG/ML VIAL IV PRN (06:32)
[2022-03-15] MEDS: Vancomycin IV 1.5 GM in SODIUM CHLORIDE 0.9% 250ML 300 ML IV SCH ×2 (09:28→21:37)
[2022-03-16 00:19] VITALS: BP 134/92
[2022-03-16] MEDS: HYDROMORPHONE 1MG/1ML INJ IV PRN (01:55)
[2022-03-16 05:58] VITALS: BP 131/95
[2022-03-16 07:18] LABS: BASOPHILS # (AUTO) 0.1 (0.0-0.1); EOSINOPHILS # (AUTO) 0.4 (0.0-0.4); EOSINOPHILS % 6.5 % (0.0-6.0); HEMATOCRIT 36.5 % (38.2-49.6); LYMPHOCYTES # (AUTO) 1.5 (1.0-3.2); LYMPHOCYTES % 24.1 % (18.0-39.1); MEAN CORPUSCULAR HEMOGLOBIN 31.6 pg (28-32); MEAN CORPUSCULAR HGB CONC 32.9 g/dL (31-35); MEAN CORPUSCULAR VOLUME 96.1 fL (81-99); MONOCYTES # (AUTO) 0.5 (0.2-0.8); MONOCYTES % 8.8 % (4.4-11.3); NEUTROPHILS # (AUTO) 3.6 (2.1-6.9); NEUTROPHILS % 58.9 % (38.7-80.0); PLATELET COUNT 272 x10e3/uL (140-360); RED CELL DISTRIBUTION WIDTH 13.7 % (11.7-14.4)
[2022-03-16 07:41] LABS: ANION GAP 13.9 mmol/L (8-16); CALCIUM 8.7 mg/dL (8.4-10.2); CREATININE, SERUM 0.69 mg/dL (0.72-1.25); POTASSIUM 3.9 mmol/L (3.5-5.1)
[2022-03-16 08:53] VITALS: BP 158/78
[2022-03-16 08:56] VITALS: BP 158/78
[2022-03-16] MEDS: HYDROCODONE/APAP 7.5MG-325MG 1 EA TAB PO PRN (09:47)
[2022-03-16] MEDS: Vancomycin IV 1.5 GM in SODIUM CHLORIDE 0.9% 250ML 300 ML IV SCH (10:37)
[2022-03-16 12:22] VITALS: BP 138/86
[2022-03-16 16:16] VITALS: BP 146/94
[2022-03-16] MEDS ORDERED: ZYVOX100 MG/5 M PO (18:50)
[2022-03-16] MEDS ORDERED: KEFLEX125 MG/5 M PO (18:50)
[2022-03-16] MEDS ORDERED: NEOSTIGMINE 1 MG/ML 10ML VIAL IV ONE (20:17)
[2022-03-16] MEDS ORDERED: SEVOFLURANE INHAL SOLN 250 ML PEN BTL INH ONE ×3 (20:17)
[2022-03-16] MEDS ORDERED: POVIDONE IODINE 0.05% 0.05 % ML PO ONE ×3 (20:17)
[2022-03-16] MEDS ORDERED: DEXAMETHASONE SOD PHOS INJ 4 MG/ML SDV IV ONE ×2 (20:17)
[2022-03-16] MEDS ORDERED: PROPOFOL IV EMULSION 10 MG/ML 20 ML VIAL IV ONE ×3 (20:17)
[2022-03-16] MEDS ORDERED: GLYCOPYRROLATE INJ 0.2 MG/ML VIAL IV ONE (20:17)
[2022-03-16] MEDS ORDERED: KETOROLAC TROMETHAMINE 30 MG/ML VIAL IV ONE ×2 (20:17)
[2022-03-16] MEDS ORDERED: LIDOCAINE HCL 2% LOCAL INJ 5 ML SDV VIAL INJ ONE ×2 (20:17)
[2022-03-16] MEDS ORDERED: ONDANSETRON HCL INJ 2MG/ML 2ML 2 MG/ML VIAL IV ONE ×3 (20:17)
== END 2022-03-16 20:18 | disposition home or self-care (01) | DRG 333 ==
LOC: FSED 16:33 → ERHOLD 23:16 → MED/SURG3 03-12 00:24
PROVIDERS: ADMIT Internal Medicine; ATTEND Internal Medicine
PROC: 0DBP0ZZ Excision of Rectum, Open Approach (ICD-10-PCS; 2022-03-13)
PROC: 0JBB0ZZ Excision of Perineum Subcutaneous Tissue and Fascia, Open Approach (ICD-10-PCS; principal; 2022-03-13 13:42)
DX: K61.1 Rectal abscess (principal); I96 Gangrene, not elsewhere classified; Z68.43 Body mass index [BMI] 50.0-59.9, adult; E66.01 Morbid (severe) obesity due to excess calories; Z86.718 Personal history of other venous thrombosis and embolism; Z79.01 Long term (current) use of anticoagulants; Z20.822 Contact with and (suspected) exposure to COVID-19
CPT/HCPCS: 36415; 72193; 80048; 80053; 80061; 80202; 82948; 83036; 83605; 83735; 84443; 85025; 87040; 87071; 87186; 87205; 93971; 94799; 99284; J0692; J1100; J1170; J1885; J2001; J2250; J2270; J2405; J2543; J2710; J3010; J3370; J7030; J7050; Q9967

== ENCOUNTER → 2023-04-29 | Day surgery (SDC) | payer BC ==
[~2023-04-29] MED LIST changes: +AMOX/CLAV PO; +GABAPENTIN300 MG PO; +HYDRALAZINE HCL 20 MG/ML VIAL ONE; +KEFLEX125 MG/5 M PO; +LACTATED RINGER'S 1,000 ML ONE; +LIDOCAINE HCL 2% LOCAL INJ 5 ML SDV VIAL INJ ONE; +PREDNISONE20 MG PO; +PROPOFOL IV EMULSION 10 MG/ML 20 ML VIAL ONE; +PROPOFOL IV EMULSION 50 ML IV ONE; +TAMIFLU75 MG PO; +VIT B12 INJ; +ZYVOX100 MG/5 M PO
[2023-04-29 14:53] VITALS: TEMP 97
[2023-04-29 15:13] VITALS: BP 112/79; PULSE 81; RESP 18; O2SAT 99
== END | disposition home or self-care (01) ==
LOC: OR 12:01
PROVIDERS: ATTEND Internal Medicine Gastroenterology
DX: R10.33 Periumbilical pain (principal); D12.4 Benign neoplasm of descending colon; K62.5 Hemorrhage of anus and rectum; K57.30 Diverticulosis of large intestine without perforation or abscess without bleeding; K64.8 Other hemorrhoids; R03.0 Elevated blood-pressure reading, without diagnosis of hypertension; Z72.0 Tobacco use; Z88.8 Allergy status to other drugs, medicaments and biological substances; Z79.899 Other long term (current) drug therapy; Z68.43 Body mass index [BMI] 50.0-59.9, adult; Z86.718 Personal history of other venous thrombosis and embolism
CPT/HCPCS: 45385; J0360; J2001; J2704 ×2; J7121; 45378